=== PATIENT | female | born 1935 | race Caucasian/White ===

== ENCOUNTER 2019-12-07 19:42 | Emergency (ER) | payer MEDICARE, OTHER ==
--- NOTE | 2019-12-07 19:58 | EDM.PDOC ---
ED HPI GENERAL MEDICAL PROBLEM - General Chief Complaint: Head Injury Stated Complaint: FELL Time Seen by Provider: 12/07/19 19:52 Source of Information: Reports: Patient History Limitations: Reports: No Limitations - History of Present Illness INITIAL COMMENTS - FREE TEXT/NARRATIVE: Patient tripped on a leg of a high chair causing her to fall, she struck her head against a wall and then the ground. Denies loss of consciousness. Complains of headache and neck pain. No other injuries or complaints. Patient takes Coumadin for Afib. Last Tetanus booster 07/2017. Onset: Today Duration: Hour(s): (1) Location: Reports: Head Quality: Reports: Ache Severity: Moderate Associated Symptoms: Reports: Headaches R upper forehead Pain Score (Numeric/FACES): 5 - Related Data Allergies Allergy/AdvReac Type Severity Reaction Status Date / Time atorvastatin [From Lipitor] Allergy Muscle Verified 12/07/19 20:21 Aches lisinopril Allergy Cough Verified 12/07/19 20:21 Home Meds: Home Meds FA/Lycopene/Lut/MV,Ca,Iron,Min [Centrum] 1 tab PO DAILY 10/11/13 [History] Montelukast [Singulair] 10 mg PO BEDTIME 10/11/13 [History] Omeprazole 40 mg PO DAILY 10/11/13 [History] Rosuvastatin [Crestor] 5 mg PO DAILY 10/11/13 [History] Warfarin Sodium [Jantoven] 5 mg PO SUMOSA 10/11/13 [History] FLUoxetine HCl [PROzac Weekly] 90 mg PO WE 10/16/13 [History] Metoprolol Tartrate [Lopressor] 75 mg PO BID #30 tablet 10/23/13 [Rx] Albuterol Sulfate [Albuterol Sulfate Hfa] 2 puff IH Q6H PRN 12/07/19 [History] Diclofenac Sodium [Voltaren 1% Gel] 2 gm TOP QID PRN 12/07/19 [History] Fluticasone/Salmeterol [Advair 500-50] 2 puff INH BID 12/07/19 [History] Furosemide [Lasix] 20 mg PO DAILY PRN 12/07/19 [History] Losartan Potassium 25 mg DAILY 12/07/19 [History] Triamterene/Hydrochlorothiazid [Triamterene-HCTZ 37.5-25 MG] 1 tab DAILY [History] Warfarin Sodium [Jantoven] 7.5 mg TUWETHFR 12/07/19 [History] guaiFENesin [Mucinex] 600 mg PO BID 12/07/19 [History] metFORMIN HCl [Metformin HCl ER] 500 mg DAILY 12/07/19 [History] Past Medical History Cardiovascular History: Reports: Afib, High Cholesterol, Hypertension Respiratory History: Reports: Asthma Social & Family History - Living Situation & Occupation Living situation: Reports: with Family Occupation: Retired ED ROS GENERAL - Review of Systems Review Of Systems: Comprehensive ROS is negative, except as noted in HPI. ED EXAM, HEAD INJURY - Physical Exam Exam: See Below Exam Limited By: No Limitations General Appearance: Alert, WD/WN, No Apparent Distress Head: Normocephalic, Scalp Swelling (right frontal), Scalp Abrasions (right frontal) Nexus Criteria: Posterior, Midline Cervical Tenderness (mild) Eyes: Bilateral Eye: EOMI, PERRL Ears: Normal External Exam Nose: Normal Inspection Throat/Mouth: No Airway Compromise Neck: Tender Midline (mild) Respiratory: No Respiratory Distress, Lungs Clear, Normal Breath Sounds Cardiovascular: No Murmur, Irregularly Irregular Back Exam: Normal Inspection. No: Vertebral Tenderness Extremities: Normal Range of Motion, Non-Tender Neurologic: No Motor/Sensory Deficits, Alert, Normal Mood/Affect, Oriented x 3 Skin: Other (as above) - Andria Coma Score Best Eye Response (Wilsey): (4) Open Spontaneously Best Verbal Response (Wilsey): (5) Oriented Best Motor Response (Wilsey): (6) Obeys Commands Andria Total: 15 Course - Vital Signs Last Recorded V/S: Last Vital Signs Temp 35.8 C L 12/07/19 19:42 Pulse 60 12/07/19 21:52 Resp 20 12/07/19 21:52 BP 165/91 H 12/07/19 21:52 Pulse Ox 97 12/07/19 21:52 - Orders/Labs/Meds Orders: Active Orders 24 hr Category Date Time Status Cervical Spine wo Cont [CT] Stat Exams 12/07/19 19:46 Taken Head wo Cont [CT] Stat Exams 12/07/19 19:45 Taken Labs: Laboratory Tests 12/07/19 Range/Units 20:00 PT 19.4 H (9.0-11.1) sec INR 2.01 H (1.00-1.24) - Radiology Interpretation Free Text/Narrative:: CT Head w/o contrast: right frontal scalp hematoma without calvarial injury. No intracranial hemorrhage. CT C-spine w/o contrast: No evidence for acute osseous traumatic change of the cervical spine. Multilevel degenerative changes are present. - Re-Assessments/Exams Free Text/Narrative Re-Assessment/Exam: 12/07/19 20:30 Patient care transferred to Dr. Ruth. Departure - Departure Time of Disposition: 22:00 (12/07/19) Disposition: Home, Self-Care 01 Clinical Impression: Minor head injury without loss of consciousness Qualifiers: Encounter type: initial encounter Qualified Code(s): S09.90XA - Unspecified injury of head, initial encounter Cervical strain, acute Qualifiers: Encounter type: initial encounter Qualified Code(s): S16.1XXA - Strain of muscle, fascia and tendon at neck level, initial encounter - Discharge Information *PRESCRIPTION DRUG MONITORING PROGRAM REVIEWED*: No *COPY OF PRESCRIPTION DRUG MONITORING REPORT IN PATIENT HU: Not Applicable Instructions: Facial or Scalp Contusion, [id number] Referrals: Liliam Cuba [employer]IVER [Primary Care Provider] - Forms: ED Department Discharge Additional Instructions: Continue current meds. Use ice for 10 minutes every 2 hours for the next 2 days. Rest tomorrow. Limit activities. For pain, take acetaminophen 500 mg 2 tabs 4 times a day for 2 days, longer if needed. See your doctor on Match 12th as scheduled, earlier if you are continuing to have symptoms. Return to ED if you are feeling worse.Call your Physician or Return to Emergency Department if: * Your condition worsens in any way. * You develop fever greater than 100.4. * You have vomitting that does not stop with medications. * You have pain that is not controlled with medications. Sepsis Event Note - Focused Exam Vital Signs: Vital Signs Pulse Resp BP Pulse Ox 12/07/19 21:52 60 20 165/91 H 97 Date Exam was Performed: 12/08/19 Time Exam was Performed: 08:59 - My Orders Last 24 Hours: My Active Orders 12/07/19 19:45 Head wo Cont [CT] Stat 12/07/19 19:46 Cervical Spine wo Cont [CT] Stat - Assessment/Plan Last 24 Hours: My Active Orders 12/07/19 19:45 Head wo Cont [CT] Stat 12/07/19 19:46 Cervical Spine wo Cont [CT] Stat
--- NOTE | 2019-12-07 22:02 | PCM.SN ---
- Free Text/Narrative Note: c/o fall playing bingo got up to go to bathroom, turned to greet a young boy and foot caught on the leg of a chair no LOC seen and evaluated by Dr Viera who asked me to review CT of head and neck which show no acute process lives alone, has a friend here who will drive her home, using ice during the entire visit, denies [place] or neck pain at d/c has apt with PCP 12/24, does not want an earlier apt
== END 2019-12-07 22:25 | disposition home or self-care (01) ==
LOC: FB.ED 19:42
DX: S16.1XXA Strain of muscle, fascia and tendon at neck level, initial encounter (principal); S00.01XA Abrasion of scalp, initial encounter; I10 Essential (primary) hypertension; E78.00 Pure hypercholesterolemia, unspecified; J45.909 Unspecified asthma, uncomplicated; I48.91 Unspecified atrial fibrillation; Z88.8 Allergy status to other drugs, medicaments and biological substances; Z79.899 Other long term (current) drug therapy; W01.10XA Fall on same level from slipping, tripping and stumbling with subsequent striking against unspecified object, initial encounter
CPT/HCPCS: 36415; 70450; 72125; 85610; 99283; 99284-25

== ENCOUNTER 2022-11-05 09:08 | Emergency (ER) | payer MEDICARE, OTHER ==
[2022-11-05 09:48] LABS: ESTIMATED GFR 63 mL/min (>60)
[2022-11-05] MEDS ORDERED: Iopamidol 755 Mg/ML 100 ML Bottle IV ONE (10:10)
[2022-11-05] MEDS ORDERED: Labetalol 20 MG/4 ML Syringe IVPUSH ONE (10:33)
[2022-11-05] MEDS ORDERED: Labetalol 20 MG/4 ML Syringe ONE (10:36)
== END 2022-11-05 11:30 ==
LOC: FB.ED 09:08
DX: I28.1 Aneurysm of pulmonary artery (principal); I63.9 Cerebral infarction, unspecified; I48.91 Unspecified atrial fibrillation; I44.7 Left bundle-branch block, unspecified; I11.0 Hypertensive heart disease with heart failure; I50.82 Biventricular heart failure; J45.909 Unspecified asthma, uncomplicated; E78.00 Pure hypercholesterolemia, unspecified; E66.9 Obesity, unspecified; Z88.8 Allergy status to other drugs, medicaments and biological substances; Z79.899 Other long term (current) drug therapy; Z79.01 Long term (current) use of anticoagulants; Z79.84 Long term (current) use of oral hypoglycemic drugs
CPT/HCPCS: 36415; 70450; 71275; 80053; 83880; 84484; 85025; 86140; 93005; 93010; 96374; 99285; 99285-25; J3490; Q9967